=== PATIENT | female | born 1990 | race Caucasian/White ===

== ENCOUNTER 2019-12-30 07:53 | Day surgery (SDC) | payer MEDICAID, SELFPAY ==
[~2019-12-30] VITALS: Ht 154.9 cm; Wt 72.6 kg
[2019-12-30] MEDS ORDERED: IOPAMIDOL 50 ML VIAL IV ONE (07:54)
[2019-12-30] MEDS ORDERED: NS 50 ML BAG IV ONE (07:54)
[2019-12-30] MEDS ORDERED: LIDOCAINE 2%, 20 ML MDV INJ ONE (07:54)
[2019-12-30] MEDS ORDERED: MIDAZOLAM HCL 5 MG/5 ML VIAL IVP ONE (07:54)
[2019-12-30] MEDS ORDERED: methylPREDNISolone ACETATE 80 MG/ML IM ONE (07:54)
[2019-12-30 08:07] LABS: HCG,QUAL RESULT NEGATIVE (NEGATIVE)
[2019-12-30] MEDS ORDERED: DIPHENHYDRAMINE INJ 50 MG/ML VIAL ONE (08:45)
[2019-12-30] MEDS: MIDAZOLAM HCL 5 MG/5 ML VIAL ONE ×2 (09:35→09:37)
[2019-12-30 10:57] VITALS: BP_SYST 107
== END 2019-12-30 11:05 | disposition home or self-care (01) ==
LOC: SMU 07:53 → SDS 07:53 → EDBD 13:15
PROVIDERS: ATTEND Internal Medicine
DX: M54.16 Radiculopathy, lumbar region (principal); Z11.59 Encounter for screening for other viral diseases
CPT/HCPCS: 62323; 84703; J1040; J1200; J2001; J2250; J7120; Q9967; U0003; 76000